=== PATIENT | female | born 1940 | race Caucasian/White ===

== ENCOUNTER → 2016-10-15 | Outpatient (CLI) | payer MEDICARE ==
--- NOTE | 2016-10-15 12:03 | RAD ---
Right knee, 3 views, 10/15/2016: History: Pain after fall There is patchy bony demineralization. No fracture or dislocation is identified. No significant arthritic change is seen. There is a suggestion of a small joint effusion. IMPRESSION: No acute bony abnormality is detected. Right foot, 3 views, 10/15/2016: There is a mild hallux valgus deformity with associated degenerative change at the first MTP joint. There is patchy bony demineralization. No acute fracture or dislocation is identified. There is mild subcutaneous edema. IMPRESSION: No acute bony abnormality is detected. Right forearm, 2 views, 10/15/2016: The bony structures are demineralized. No fracture is identified.
== END | disposition home or self-care (01) ==
LOC: DXRADRC 09:03
PROVIDERS: ATTEND Physician Assistant Medical
DX: M25.561 Pain in right knee (principal); M79.671 Pain in right foot; M79.601 Pain in right arm; W19.XXXA Unspecified fall, initial encounter; Y93.89 Activity, other specified; Y92.89 Other specified places as the place of occurrence of the external cause; Y99.8 Other external cause status
CPT/HCPCS: 73090; 73562; 73630

== ENCOUNTER → 2017-05-18 | Outpatient (CLI) | payer BC, MEDICARE ==
--- NOTE | 2017-05-18 09:06 | RAD ---
INDICATION: LEFT ANKLE INJURY X 1 DAY, FALL FROM LADDER COMPARISON: None. IMPRESSION: Left ankle: 3 views obtained. A definite fracture line is not seen. There is a joint effusion identified within the tibiotalar joint.
== END | disposition home or self-care (01) ==
LOC: DXRADRC 07:35
PROVIDERS: ATTEND Family Medicine
DX: S99.912A Unspecified injury of left ankle, initial encounter (principal); W11.XXXA Fall on and from ladder, initial encounter; Y93.89 Activity, other specified; Y92.89 Other specified places as the place of occurrence of the external cause; Y99.8 Other external cause status
CPT/HCPCS: 73610

== ENCOUNTER → 2017-06-30 | Outpatient (CLI) | payer BC ==
--- NOTE | 2017-06-30 14:36 | RAD ---
Indication: Twisted ankle. Time of exam 1427 hours. 3 views were obtained. Alignment is normal. Ankle mortise is well-maintained. The talar dome is smooth. No fracture or dislocation is seen. There is moderate soft tissue swelling. Impression: Soft tissue swelling. No acute bony abnormality is detected.
== END | disposition home or self-care (01) ==
LOC: RAD 14:00
PROVIDERS: ATTEND Physician Assistant Medical
DX: M79.672 Pain in left foot (principal); M25.462 Effusion, left knee
CPT/HCPCS: 73610

== ENCOUNTER → 2020-08-17 | Outpatient (CLI) | payer MEDICARE ==
--- NOTE | 2020-08-17 17:59 | RAD ---
Right lower extremity arterial duplex study 08/17/2020 CLINICAL HISTORY: Right leg pain. TECHNIQUE: Using a combination real-time ultrasound imaging and color-flow and pulse doppler imaging techniques, duplex evaluation of the major arterial structures of the right lower extremity was perfo rmed. Multiple images were obtained. FINDINGS: Minimal atheromatous/atherosclerotic plaque formation is seen scattered throughout the ariane r arterial structures of the right lower extremity. Biphasic/triphasic arterial waveforms are seen th roughout.The peak systolic velocities taper normally. No hemodynamically significant stenosis or area of occlusion is seen. IMPRESSION: Minimal atheromatous/atherosclerotic plaque formation is seen scattered throughout the ma maria c arterial structures of the right lower extremity. No hemodynamically significant stenosis or area of occlusion is seen. Electronically signed by: Tariq Hauser MD (08/17/2020 5:57 PM) [id number]
== END ==
LOC: US 13:54
PROVIDERS: ATTEND Physician Assistant Medical
DX: I70.201 Unspecified atherosclerosis of native arteries of extremities, right leg (principal)
CPT/HCPCS: 93926

== ENCOUNTER → 2020-10-10 | Outpatient (CLI) | payer MEDICARE ==
--- NOTE | 2020-10-10 18:23 | RAD ---
C-spine 5 views INDICATION: Left-sided neck pain. History of previous surgery. TECHNIQUE: AP, bilateral oblique, lateral, and open-mouth odontoid views of the cervical spine were o btained. FINDINGS: Alignment suggests subtle kyphotic angulation at C7-T1 in the setting of an apparently fused disc at this level. There is no listhesis and no scoliotic curvature. The bones are demineralized but no fractures are apparent. No aggressive bony lesions are seen. There are ACDF surgical changes at C4-C5 with an interbody graft. Alignment appears anatomic. Multilevel facet degenerative changes are present throughout the cervical spine. These contribute to at least mild bony foraminal stenosis on the left at C3-C4 and moderate bony foraminal stenosis on th e right at C3-C4. No evidence of hardware loosening or migration. The soft tissues are unremarkable. IMPRESSION: Facet degenerative changes in the cervical spine status post C4-C5 ACDF with findings of at least mil d to moderate bilateral foraminal stenosis at C3-C4. No fracture or malalignment otherwise appreciate d on plain film. Electronically signed by: Deniz Szymanski MD (10/10/2020 6:21 PM) [id number]
== END ==
LOC: PMG 15:07
PROVIDERS: ATTEND Physician Assistant Medical
DX: M47.812 Spondylosis without myelopathy or radiculopathy, cervical region (principal); M48.02 Spinal stenosis, cervical region
CPT/HCPCS: 72050

== ENCOUNTER 2021-01-19 13:21 | Emergency (ER) | payer MEDICARE ==
[~2021-01-19] VITALS: Ht 165.1 cm; Wt 67.7 kg
[2021-01-19 13:26] VITALS: BP 161/88
--- NOTE | 2021-01-19 13:30 | PHYS DOC ---
Adult General HPI HPI Patient is a 80-year-old female presenting for eye issues. Reports having history of 5-FU cream use, states she was supposed to take this for 2 weeks only but ended up taking it for x4 weeks. She stopped using this a few days ago and since has been putting Vaseline on her nose. In addition, patient with known history of shingles reports mild symptoms that started approximately 5 days ago. She saw a local urgent care 3 days ago as she thought she had shingles outbreak starting on her left superior forehead region and acyclovir was started with instructions to return if she thought there was any development/progression into her eye. She presents today as she woke up with some mild changes of her left eye, no difficulty seeing or blurred vision but admits visual abnormalities around the orbit. Nothing known makes better or worse, she has not tried to provide any type of care to alleviate her symptoms. Review of Systems Review of Systems Fourteen body systems of review of systems have been reviewed. See HPI for pertinent positives and negative responses, other bailey all other systems are negative, non-pertinent or non-contributory Physical Exam Physical Exam Constitutional: Well developed, well nourished, no acute distress, non-toxic appearance. HENT: Normocephalic, atraumatic, bilateral external ears normal, oropharynx moist, no oral exudates, external nose skin inflamed and chapped consistent in appearance with 5-FU cream use Eye exam: The patient was examined with the slit lamp. Extraocular movements are intact Pupils are equally round and reactive to light Eyelids/under eyelids: No obvious foreign bodies but bilateral lower eyelids inflamed with mild subcutaneous edema present Conjunctivae and sclera: normal Corneas: normal without fluorescein uptake, and negative Lesvia sign Anterior chambers: normal without cell, flare, or hyphema Eye pressures (tonometer): left eye 14 , right eye 15 No obvious findings of dendritic/herpetic lesions or involvement of eye Neck: Normal range of motion, no tenderness, supple, no stridor. Cardiovascular: Heart rate regular, sinus rhythm, no murmurs rubs or gallops Lungs & Thorax: Bilateral breath sounds clear to auscultation Abdomen: Bowel sounds normal, soft, no tenderness, no masses, no pulsatile masses. Nonsurgical abdomen, no peritoneal signs Skin: Warm, dry, no erythema, nose findings noted above. There is a 2 cm x 2 cm area of healing shingles present to left anterior forehead on patient's hairline Back: No tenderness, no CVA tenderness. Extremities: No tenderness, no cyanosis, no clubbing, ROM intact, no edema. Neurologic: Alert and oriented X 3, grossly normal motor & sensory function, no focal deficits noted. Psychologic: Affect normal, judgement normal, mood normal. Current Patient Data Vital Signs Vital Signs Date Time Temp Pulse Resp B/P (MAP) Pulse Ox O2 Delivery O2 Flow Rate FiO2 01/19/21 13:26 98.0 82 16 161/88 (112) 97 Vital Signs Date Time Temp Pulse Resp B/P (MAP) Pulse Ox O2 Delivery O2 Flow Rate FiO2 01/19/21 13:26 98.0 82 16 161/88 (112) 97 EKG EKG [] Radiology/Procedures Radiology/Procedures [] Heart Score C/O Chest Pain: No Risk Factors: Risk Factors: DM, Current or recent (<one month) smoker, HTN, HLP, family history of CAD, obesity. Risk Scores: Risk Factors: DM, Current or recent (<one month) smoker, HTN, HLP, family history of CAD, obesity. Course & Med Decision Making Course & Med Decision Making ABCs unremarkable. I disclosed entirety of ER findings and discussed most likely diagnosis of recovering shingles for which she should continue acyclovir treatment for in addition to complications from recent 5-FU cream and blepharitis of bilateral eyes for which continued supportive care practices were advised. I stressed need for close outpatient primary care and Ortho follow-up to review today's ER visit. Strict return precautions were also discussed at length with good understanding by patient. Patient voiced understanding and agreement with the plan. Patient knows to come back for repeat evaluation if concerning signs or symptoms present prior to outpatient follow-up. Hemodynamically stable, ambulatory and well-appearing at time of disposition. Dragon Disclaimer Dragon Disclaimer This electronic medical record was generated, in whole or in part, using a voice recognition dictation system. Departure Departure: Impression: Primary Impression: On 5-fluorouracil (5-FU) therapy Additional Impressions: Shingles Blepharitis of both eyes Disposition: HOME / SELF CARE / HOMELESS Referrals: MICHELE CORNEJO (PCP) Additional Instructions: As discussed prior to ER departure, you are suffering from multiple issues. Your vital signs and physical exam was nonconcerning for any emergent or surgical issues. It appears your recent topical 5-FU cream irritated your nose which is to be expected with said medication but also looks like there might be some mild eye involvement. You have been doing well by stopping treatment and applying Vaseline. As discussed, lid hygiene, avoiding eye make-up, warm compresses 4 times a day for 15 minutes, scrubbing both upper and lower lids with mild shampoo twice a day are recommended. Continue your daily antidry eyedrops as well. There is no obvious involvement of shingles in your eyes. In addition, your isolated area of shingles on your forehead is likely an additional and separate finding, you should continue antiviral therapy as previously prescribed. You should contact your primary care and hide curer first thing Thursday morning to review ER visit today and need for close outpatient follow-up to ensure continued symptomatic improvement. If any co ncerning signs or symptoms present prior to outpatient follow-up please do not hesitate to come back for repeat evaluation. It was a pleasure to take care of you and I wish you the best going forward Problem Qualifiers CHAZ GARCIA DO Jan 19, 2021 13:30
[2021-01-19] MEDS ORDERED: TETRACAINE 0.5% OPHTH SOLUTION 4ML BOTTLE. ONE (13:35)
[2021-01-19] MEDS ORDERED: TETRACAINE 0.5% OPHTH SOLUTION 4ML BOTTLE. OU ONE (13:45)
[2021-01-19] MEDS ORDERED: FLUORESCEIN 1MG EYE STRIP. OU ONE ×2 (14:00→14:15)
== END 2021-01-19 14:37 | disposition home or self-care (01) ==
LOC: ER 13:21
DX: B02.9 Zoster without complications (principal); H01.006 Unspecified blepharitis left eye, unspecified eyelid; H01.003 Unspecified blepharitis right eye, unspecified eyelid
CPT/HCPCS: 99283

== ENCOUNTER → 2021-11-25 | Outpatient (CLI) | payer MEDICARE ==
--- NOTE | 2021-11-25 14:31 | RAD ---
EXAM: XR LUMBAR SPINE 4+V 11/25/2021 12:12 PM CLINICAL INDICATION: Chronic back pain COMPARISON: None TECHNIQUE: AP, lateral, right and left oblique, and coned-down lateral view of the lumbar spine FINDINGS: There are small ribs at T12. There are 5 nonrib-bearing lumbar vertebral bodies. Mild levo scoliosis of lumbar spine centered at L3-L4. No acute fracture. Alignment is normal. There is mild di sc space narrowing with tiny anterior osteophytes at L2-L3 through L4-L5. IMPRESSION: Mild lumbar scoliosis and degenerative disc disease from L2-L3 through L4-L5. Electronically signed by: Grecia Maxwell MD (11/25/2021 2:28 PM) [id number]
== END ==
LOC: RAD 11:56
PROVIDERS: ATTEND Physician Assistant Medical
DX: M51.36 Other intervertebral disc degeneration, lumbar region (principal); M48.061 Spinal stenosis, lumbar region without neurogenic claudication; M41.86 Other forms of scoliosis, lumbar region; M25.78 Osteophyte, vertebrae
CPT/HCPCS: 72110